=== PATIENT | male | born 1960 | race Caucasian/White ===

== ENCOUNTER 2023-07-13 17:23 | Emergency (ER) | payer MEDICAID, SELFPAY ==
[2023-07-13] VITALS (15 sets, daily range): BP systolic 130–144; BP diastolic 93–104; PULSE 60–73; RESP 18; TEMP 36.1; O2SAT 94–99; BMI 28.9
--- NOTE | 2023-07-13 17:58 | ED.GENADULT ---
HPI - General Adult General Chief complaint: Chest Pain Stated complaint: High BP, tightness in chest Time Seen by Provider: 07/13/23 17:57 History of Present Illness HPI narrative: woke up with L sided cp, bp has been running high at home. did do heavy lifting yesterday. also some nausea that comes and goes. wednesday felt fatigued after doing 2 days of yardwork. 62-year-old man presenting to the emergency department with complaint of persistent left upper chest and left upper arm/shoulder pressure since waking this morning. It is now 6:00 p.m. in the afternoon. He has also had intermittent bouts of feeling like ?I am going to lose it? by that he means nausea. Does not have any abdominal pain. No shortness of breath no lightheadedness. He has checked his blood pressures which he notes to be little bit elevated 150/90s. He said his pulses been normal. Discomfort is not clearly associated with exertion. Yesterday he was moving a numerous bags of sackrete. Today was supposed to be the project. He does not recall an injury. He is right hand dominant. Feeling a little full leah right now thinking that there are other sick people around. Does not have cardiac history of any sort. Only takes omeprazole Related Data Home Medications Medication Instructions Recorded Confirmed omeprazole 07/13/23 Allergies Allergy/AdvReac Type Severity Reaction Status Date / Time No Known Drug Allergies Allergy Verified 03/01/23 12:56 Review of Systems Status of ROS: Reports: 6 or more systems reviewed and unremarkable except as noted in History and below [facility] Medical History (Updated 07/28/23 @ 00:00 by Background Bobby) AOM (acute otitis media) ?H66.90 - Otitis media, unspecified, unspecified ear (ICD-10) Social History Smoking Status: Never smoker How often do you have a drink containing alcohol: 2-3 times a week How many standard drinks containing alcohol do you have on a typical day: 1 or 2 How often do you have six or more drinks on one occasion: Never AUDIT-C Alcohol total score: 3 Non-prescribed substance use: denies use Exam Narrative: Exam Narrative: Seems little uncomfortable, worried. Breathing easily. Lungs are clear. No supraclavicular crepitus. Extremities are well perfused without edema. Heart in regular rate and rhythm. Abdomen is soft tender Mildly sore to palpation in the left upper outer pectoralis and into the deltoid area. Raises arms over his head the without any difficulty. Feels a little bit more discomfort at that point. Const: Vital Signs, click to edit/add: Vital Signs - 24 hr 07/13/23 17:40 07/13/23 17:51 07/13/23 17:52 Temperature 97 F L Pulse Rate 69 66 Pulse Rate [Pulse Oximeter] 73 Respiratory Rate 18 Blood Pressure 144/94 H Blood Pressure [Ri ght Upper Arm] 144/104 H Pulse Oximetry 97 96 97 Oxygen Delivery Me thod Room Air 07/13/23 18:01 07/13/23 18:15 07/13/23 18:30 Temperature Pulse Rate 66 64 62 Pulse Rate [Pulse Oximeter] Respiratory Rate Blood Pressure Blood Pressure [Ri ght Upper Arm] Pulse Oximetry 97 95 94 Oxygen Delivery Me thod 07/13/23 18:35 07/13/23 18:45 07/13/23 18:53 Temperature Pulse Rate 63 65 63 Pulse Rate [Pulse Oximeter] Respiratory Rate Blood Pressure 130/93 H Blood Pressure [Ri ght Upper Arm] Pulse Oximetry 96 95 95 Oxygen Delivery Me thod 07/13/23 18:54 07/13/23 19:00 07/13/23 19:02 Temperature Pulse Rate 65 60 60 Pulse Rate [Pulse Oximeter] Respiratory Rate Blood Pressure 142/104 H Blood Pressure [Ri ght Upper Arm] Pulse Oximetry 95 94 95 Oxygen Delivery Me thod 07/13/23 19:15 07/13/23 19:30 07/13/23 19:32 Temperature Pulse Rate 64 70 67 Pulse Rate [Pulse Oximeter] Respiratory Rate Blood Pressure 138/97 H Blood Pressure [Ri ght Upper Arm] Pulse Oximetry 94 96 99 Oxygen Delivery Me thod Documenting provider has reviewed patient's vital signs: yes Course Vital Signs Vital signs: Initial Vital Signs Temperature 97 F L 07/13/23 17:40 Temperature Source Temporal Artery Scan 07/13/23 17:40 Pulse Rate 73 07/13/23 17:40 Respiratory Rate 18 07/13/23 17:40 Blood Pressure 144/104 H 07/13/23 17:40 Blood Pressure Mean 117 H 07/13/23 17:40 Blood Pressure Position Sitting 07/13/23 17:40 Pulse Oximetry 97 07/13/23 17:40 Oxygen Delivery Method Room Air 07/13/23 17:40 Vital Signs Temperature 97 F L 07/13/23 17:40 Pulse Rate 73 07/13/23 17:40 Respiratory Rate 18 07/13/23 17:40 Blood Pressure 144/104 H 07/13/23 17:40 Pulse Oximetry 97 07/13/23 17:40 Oxygen Delivery Method Room Air 07/13/23 17:40 Temperature 97 F L 07/13/23 17:40 Pulse Rate 67 07/13/23 19:32 Respiratory Rate 18 07/13/23 17:40 Blood Pressure 138/97 H 07/13/23 19:32 Pulse Oximetry 99 07/13/23 19:32 Oxygen Delivery Method Room Air 07/13/23 17:40 Medical Decision Making MDM Narrative Medical decision making narrative: Seems to have reproducible musculoskeletal/chest wall issue here. Not entirely convincing. Will evaluate though further for ischemic cardiovascular disease, possible DVT/PE. Has somewhat of an anginal description as well. Labs are reassuring. Did repeat troponin which remained negative. Seems a little less uncomfortable prior to departure. See patient discharge plan Medical Records Medical records reviewed: Yes I reviewed the patient's medical records Lab Data Lab results reviewed: Yes I reviewed the patient's lab results Labs: Lab Results 07/13/23 07/13/23 Range/Units 18:00 19:50 WBC 7.57 (4.50-11.00) K/uL RBC 5.06 (4.30-5.90) m/uL Hgb 15.6 (13.5-17.5) gm/dL Hct 45.1 (37.0-53.0) % MCV 89 (80-100) fL MCH 31 (26-34) pg MCHC 35 (32-36) gm/dL RDW Coeff of [place] 11.6 (11.5-15.5) % Plt Count 212 (140-440) K/uL Neut % (Auto) 67.9 (42.0-72.0) % Lymph % (Auto) 21.8 (20-44) % Summers % (Auto) 8.3 (0.0-11.0) % Eos % (Auto) 1.2 (0.0-7.0) % Baso % (Auto) 0.7 (0.0-3.0) % Neut # (Auto) 5.14 (1.7-7.0) K/uL Lymph # (Auto) 1.65 (0.90-2.90) K/uL Summers # (Auto) 0.60 (0.00-0.90) K/UL Eos # (Auto) 0.09 (0.00-0.50) K/uL Baso # (Auto) 0.05 (0.00-0.30) K/uL Abs Immat Gran (auto) 0.01 (0.00-0.30) K/uL Imm/Tot Granulo (auto) 0.1 % D-Dimer Quant (PE/DVT) 0.34 (0.00-0.50) ug/ml Sodium 138 (135-149) mmol/L Potassium 4.0 (3.6-5.1) mmol/L Chloride 106 (96-114) mmol/L Carbon Dioxide 23 (20-32) mmol/L Anion Gap 9 (7-15) mEq/L BUN 13 (7-30) mg/dL Creatinine 0.8 (0.5-1.5) mg/dL Estimated Creat Clear 86.77 Estimated GFR 99 ml/min Glucose 120 H (60-115) mg/dL Calcium 9.6 (8.4-10.6) mg/dL Troponin I < 0.01 L (0.01-0.04) ng/mL C-Reactive Protein < 0.5 L (0.5-1.0) mg/dL NT-Pro-B Natriuret Pep 31 pg/mL POC Troponin I 0.00 L 0.00 L (0.01-0.04) ng/ml ECG Data Attestation: I personally reviewed and interpreted this ECG as follows: (Normal sinus at a rate of 66. Without acute ischemic changes.) Discharge Plan Discharge Clinical Impression: Atypical chest pain, Elevated BP without diagnosis of hypertension, Chest pressure Patient Disposition: Home, Self-Care Condition: Stable Additional Instructions: Would consider checking your blood pressures after period of rest maybe once a day over the next few days to a week. With that I would follow-up in primary care. All of this seems somewhat atypical. You and your primary care provider might consider doing a cardiac stress test in the future. Otherwise return for increasing and persistent chest pain, pressure, lightheadedness or shortness of breath, repeated vomiting. Might want to take ibuprofen 600 mg 3 times a day for the next 3 days or alternatively 375 mg of naproxen twice daily over the same time. See also handout for stretches for the upper back as this might help mobilize some places that you are also uncomfortable. Prescriptions: No Action omeprazole Follow Up/Referrals: Yvonne Tamez PA-C [Primary Care Provider] - Stand Alone Forms: MyHealth Info Instructions
[2023-07-13 18:21] LABS: Basophils Absolute Auto 0.05 K/uL (0.00-0.30); Basophils Percent Auto 0.7 % (0.0-3.0); Eosinophils Absolute Auto 0.09 K/uL (0.00-0.50); Eosinophils Percent Auto 1.2 % (0.0-7.0); Hematocrit 45.1 % (37.0-53.0); Hemoglobin* 15.6 gm/dL (13.5-17.5); Immature Granulocytes Abs Auto 0.01 K/uL (0.00-0.30); Immature Granulocytes Pct Auto 0.1 %; Lymphocytes Absolute Auto 1.65 K/uL (0.90-2.90); Lymphocytes Percent Auto 21.8 % (20-44); Mean Corpuscular HGB Conc 35 gm/dL (32-36); Mean Corpuscular Hemoglobin 31 pg (26-34); Mean Corpuscular Volume 89 fL (80-100); Monocytes Percent Auto 8.3 % (0.0-11.0); Neutrophils Absolute Auto 5.14 K/uL (1.7-7.0); Neutrophils Percent Auto 67.9 % (42.0-72.0); Platelet Count* 212 K/uL (140-440); RDW Coefficient of Variation % 11.6 % (11.5-15.5); Red Blood Count 5.06 m/uL (4.30-5.90); White Blood Count* 7.57 K/uL (4.50-11.00)
[2023-07-13 18:34] LABS: D Dimer Quantitative* 0.34 ug/ml (0.00-0.50); Slide Review Reflex No
[2023-07-13 18:38] LABS: Chloride* 106 mmol/L (96-114); Sodium* 138 mmol/L (135-149)
[2023-07-13 18:41] LABS: Anion Gap 9 mEq/L (7-15); Blood Urea Nitrogen* 13 mg/dL (7-30); Carbon Dioxide* 23 mmol/L (20-32); Creatinine* 0.8 mg/dL (0.5-1.5); Est. Creatinine Clearance* 86.77; Estimated Glomerular Filt Rate 99 ml/min; Glucose* 120 mg/dL (60-115)
[2023-07-13 18:42] LABS: Calcium* 9.6 mg/dL (8.4-10.6)
[2023-07-13 18:54] LABS: NT Pro B Type NatriureticPept* 31 pg/mL
[2023-07-13 19:07] LABS: Troponin I* < 0.01 ng/mL (0.01-0.04)
[2023-07-13 19:57] LABS: C Reactive Protein* < 0.5 mg/dL (0.5-1.0)
== END 2023-07-13 20:13 | disposition home or self-care (01) ==
PROVIDERS: Emergency Provider Family Medicine; PCP Physician Assistant Medical
DX: R07.89 Other chest pain (principal); R03.0 Elevated blood-pressure reading, without diagnosis of hypertension; X50.0XXA Overexertion from strenuous movement or load, initial encounter
CPT/HCPCS: 36415; 80048; 81001; 83880; 84484; 85025; 85379; 86140; 99284